=== PATIENT | male | born 1985 | race Caucasian/White ===

== ENCOUNTER 2024-04-25 13:18 | Emergency (ER) | payer OTHER, SELFPAY ==
[2024-04-25 13:22] VITALS: BP 154/106; PULSE 75; TEMP 36.5; O2SAT 99; BMI 33.1
--- NOTE | 2024-04-25 13:44 | ED_ITS ---
<Statement entered by Yinka Lugo MD - 04/25/24 18:45> Chart was sent to my inbox for administrative and group management purposes. I was the attending physicians working during the patients hospital course. The patient was seen and managed independently by the MLP. I did not personally see or evaluate this patient, nor was I involved in the patient medical decision making process or plans of care. Pt was dispositioned by the MLP with complete independence and I was not involved in planning, and am reviewing this chart at a later date. I was available for consultation should the MLP request during this patients ED stay. Midlevel this documentation has been reviewed and approved. HPI HPI - Back Pain/Injury General Chief Complaint: Back Pain/Injury Stated Complaint: BACK PAIN Time Seen by Provider: 04/25/24 13:26 Source: patient Mode of arrival: walk-in History of Present Illness HPI Narrative: Patient is a 38-year-old male who presents to the emergency department for pain across the low back which has been present for 2 weeks. He was seen last week at [facility] last week and was placed on Robaxin and prednisone. He states he has been taking these medications for the last 5 to 6 days without improvement. He states he is worried that it may be his kidneys that is causing pain across his low back. He has no pain radiation to the lower extremities. No mechanism of injury or trauma. No peripheral paresthesias or urinary symptoms. He states when he went to [facility] he feels as though the provider rushed him through . He does not have an appointment with her primary care provider until next month. Related Data Home Medications ?Medication ?Instructions ?Recorded ?Confirmed clotrimazole-betamethasone 1 1 applic topical BID 04/25/24 04/25/24 %-0.05 % topical cream losartan 25 mg tablet 25 mg PO DAILY 04/25/24 04/25/24 methocarbamol 750 mg tablet 750 mg PO Q6H PRN pain 04/25/24 04/25/24 prednisone 20 mg tablet 60 mg PO DAILY 04/25/24 04/25/24 Previous Rx's ?Medication ?Instructions ?Recorded ketorolac 10 mg tablet 10 mg PO TID PRN pain #10 tabs 04/25/24 orphenadrine citrate 100 mg 100 mg PO BID PRN muscle pain #14 04/25/24 tablet,extended release tabs Allergies Allergy/AdvReac Type Severity Reaction Status Date / Time Penicillins Allergy Severe Unknown Verified 04/25/24 13:26 Opioid HPI Opioid Management Most Recent Opioid Data: No Data to Display Review of Systems ROS Constitutional Denies: fever or chills Ears, nose, mouth, and throat Denies: throat pain or nasal congestion Cardiovascular Denies: chest pain Respiratory Denies: shortness of breath Gastrointestinal Denies: abdominal pain, nausea or vomiting Musculoskeletal Reports: back pain; Denies: neck pain, extremity pain or extremity swelling Neurological Denies: numbness in extremities or weakness in extremities Hematologic/Lymphatic Denies: easy bruising or easy bleeding [facility] Medical History (Updated 04/25/24 @ 14:55 by Ayde Carias) Low back pain ?M54.50 - Low back pain, unspecified (ICD-10) HTN (hypertension) ?I10 - Essential (primary) hypertension (ICD-10) Social History Little interest or pleasure in doing things: not at all Feeling down, depressed, or hopeless: not at all Exam Narrative Exam Narrative: Gen.: Awake, alert, in no distress Head: Normocephalic, atraumatic ENT: Moist mucous membranes Respiratory: No respiratory distress Back: Diffuse tenderness of the lumbar spine and paraspinal muscles with no bony point tenderness. No obvious deformity or step-off. Extremities: Moves extremities equally, no injuries noted; normal dorsiflexion and plantarflexion of the lower extremities with no decrease in sensation to the medial thighs. Normal hip flexion bilaterally Psych: Normal mood and affect Neuro: No focal neuro deficit Skin: Warm, dry, intact Constitutional Vital Signs, click to edit/add: Last Vital Signs Temp 97.7 F 04/25/24 13:22 Pulse 75 04/25/24 13:22 Resp 18 04/25/24 13:22 BP 154/106 H 04/25/24 13:22 Pulse Ox 99 04/25/24 13:22 O2 Del Method Room Air 04/25/24 13:22 Course Vital Signs Vital signs: Vital Signs Temperature 97.7 F 04/25/24 13:22 Pulse Rate 75 04/25/24 13:22 Respiratory Rate 18 04/25/24 13:22 Blood Pressure 154/106 H 04/25/24 13:22 Pulse Oximetry 99 04/25/24 13:22 Oxygen Delivery Method Room Air 04/25/24 13:22 Temperature 97.7 F 04/25/24 13:22 Pulse Rate 75 04/25/24 13:22 Respiratory Rate 18 04/25/24 13:22 Blood Pressure 154/106 H 04/25/24 13:22 Pulse Oximetry 99 04/25/24 13:22 Oxygen Delivery Method Room Air 04/25/24 13:22 MDM - Back Pain/Injury MDM Narrative Medical decision making narrative: Patient drove himself to the emergency department, he took ibuprofen prior to arrival. He is very concerned that he is having an issue with his kidneys so labs were performed which were unremarkable and urine specimen shows trace leukocytes and bacteria so urine culture will be sent. CT of the abdomen and pelvis was performed showing no evidence of acute process with mild degenerative changes of the lumbar spine and hips. Patient was issued new prescriptions, e ncouraged to follow-up with his PCP and return to the emergency department if symptoms change or worsen. SUPERVISED APC VISIT, PHYSICIAN ATTESTATION: Based on the medical record the care appears appropriate. ? Medical Records Attestation: I reviewed the patient's medical records. Lab Data Attestation: I reviewed the patient's lab results. Labs: Lab Results 04/25/24 04/25/24 Range/Units 13:50 14:02 WBC 7.2 (4.0-11.0) 10^3/uL RBC 4.39 L (4.70-6.10) 10^6/uL Hgb 14.3 (14.0-18.0) g/dL Hct 43.1 (42.0-54.0) % MCV 98.2 H (80.0-94.0) fL MCH 32.6 (25.9-34.0) pg MCHC 33.2 (29.9-35.2) g/dL RDW 12.0 (11.0-15.0) % Plt Count 253 (150-450) 10^3/uL MPV 9.9 (9.5-13.5) fL Neut % (Auto) 83.0 H (43.0-75.0) % Lymph % (Auto) 11.2 L (20.5-60.0) % [place] % (Auto) 3.3 (1.7-12.0) % Eos % (Auto) 1.8 (0.9-7.0) % Baso % (Auto) 0.4 (0.2-2.0) % Neut # (Auto) 6.0 (1.4-6.5) 10^3/uL Lymph # (Auto) 0.8 L (1.2-3.8) 10^3/uL [place] # (Auto) 0.2 L (0.3-0.8) 10^3/uL Eos # (Auto) 0.1 (0.0-0.7) 10^3/uL Baso # (Auto) 0.0 (0.0-0.1) 10^3/uL Abs Immat Gran (auto) 0.02 (0.00-0.03) 10^3/uL Imm/Tot Granulo (auto) 0.3 (0.0-0.5) % Sodium 140 (136-145) mmol/L Potassium 4.2 (3.5-5.1) mmol/L Chloride 105 (98-107) mmol/L Carbon Dioxide 28.4 (21.0-32.0) mmol/L Anion Gap 10.8 BUN 15.0 (7.0-18.0) mg/dL Creatinine 1.07 (0.70-1.30) mg/dL Est GFR ( Amer) >60 (>=60 mL/min/1.73m^2) Est GFR (Non-Af Amer) >60 (>=60 mL/min/1.73m^2) BUN/Creatinine Ratio 14.0 Glucose 115 H (74-106) mg/dL Calcium 9.1 (8.5-10.1) mg/dL Urine Color Lt. yellow (YELLOW) Urine Clarity Clear (CLEAR) Urine pH 6.0 (5.0-9.0) Ur Specific [place] 1.020 (1.005-1.025) Urine Protein Negative (NEG/TRACE) mg/dL Urine Glucose (UA) Negative (NEGATIVE) mg/dL Urine Ketones Negative (NEGATIVE) mg/dL Urine Occult Blood Trace-i (NEGATIVE) Urine Nitrite Negative (NEGATIVE) Urine Bilirubin Negative (NEGATIVE) Urine Urobilinogen 0.2 (0.2-1.0) EU/dL Ur Leukocyte Esterase Trace A (NEGATIVE) Urine RBC 0-2 (0-2) #/HPF Urine WBC 2-5 A (NONE SEEN) #/HPF Ur Squamous Epith Cells Rare (NONE/RARE) #/LPF Urine Crystals None seen (None Seen) #/HPF Urine Bacteria Trace A (NONE SEEN) #/HPF Urine Casts None seen (NONE SEEN) #/LPF Urine Mucus None seen (NONE SEEN) Ur Culture Indicated? No Imaging Data CT scan - abdomen: Attestation: I have reviewed the pertinent imaging results. Radiologist's impression: ITS Impressions Abdomen/Pelvis CT 04/25/24 14:17 IMPRESSION: 1. No acute or specific findings to account for patient's symptoms. 2. Multilevel mild degenerative disc disease of lumbar spine. 3. Mild degenerative changes of hip joints. Electronically authenticated by: KEV WADE Date: 04/25/2024 14:36 Discharge Plan Discharge Chief Complaint: Back Pain/Injury Clinical Impression: Low back pain Patient Disposition: Home, Self-Care Time of Disposition Decision: 14:41 Condition: Good Prescriptions / Home Meds: New ketorolac 10 mg tablet 10 mg PO TID PRN (Reason: pain) Qty: 10 0RF orphenadrine citrate 100 mg tablet extended release 100 mg PO BID PRN (Reason: muscle pain) Qty: 14 0RF No Action clotrimazole-betamethasone 1-0.05 % cream 1 applic TOPICAL BID losartan 25 mg tablet 25 mg PO DAILY methocarbamol 750 mg tablet 750 mg PO Q6H PRN (Reason: pain) prednisone 20 mg tablet 60 mg PO DAILY Patient Comments: 7 days Print Language: Croatian Instructions: Acute Low Back Pain (ED) Referrals: Physician,Non-Staff, MD [Primary Care Provider] - 1 week
--- NOTE | 2024-04-25 13:45 | PC.NURSE ---
low back pain
[2024-04-25 14:02] LABS: Bilirubin Urine NEGATIVE (NEGATIVE); Blood Urine TRACE-I (NEGATIVE); Clarity Urine CLEAR (CLEAR); Color Urine LT. YELLOW (YELLOW); Glucose Urine UA NEGATIVE (NEGATIVE); Ketones Urine NEGATIVE (NEGATIVE); Leukocyte Esterase Urine TRACE (NEGATIVE); Nitrite Urine NEGATIVE (NEGATIVE); Protein Urine NEGATIVE (NEG/TRACE); Urobilinogen Urine 0.2 EU/dL (0.2-1.0)
[2024-04-25 14:04] LABS: Urine Microscopic Indicated YES
[2024-04-25 14:09] LABS: Basophils Percent Auto 0.4 % (0.2-2.0); Eosinophils Absolute Auto 0.1 10^3/uL (0.0-0.7); Eosinophils Percent Auto 1.8 % (0.9-7.0); Hematocrit 43.1 % (42.0-54.0); Hemoglobin 14.3 g/dL (14.0-18.0); Immature Granulocytes Abs Auto 0.02 10^3/uL (0.00-0.03); Immature Granulocytes Pct Auto 0.3 % (0.0-0.5); Lymphocytes Absolute Auto 0.8 10^3/uL (1.2-3.8); Lymphocytes Percent Auto 11.2 % (20.5-60.0); Mean Corpuscular HGB Conc 33.2 g/dL (29.9-35.2); Mean Corpuscular Hemoglobin 32.6 pg (25.9-34.0); Mean Corpuscular Volume 98.2 fL (80.0-94.0); Mean Platelet Volume 9.9 fL (9.5-13.5); Monocytes Absolute Auto 0.2 10^3/uL (0.3-0.8); Monocytes Percent Auto 3.3 % (1.7-12.0); Platelet Count 253 10^3/uL (150-450); Red Blood Count 4.39 10^6/uL (4.70-6.10); White Blood Count 7.2 10^3/uL (4.0-11.0)
[2024-04-25 14:15] LABS: RBC Urine 0-2 #/HPF (0-2)
[2024-04-25 14:16] LABS: Bacteria Urine TRACE #/HPF (NONE SEEN); Cast Seen? NONE SEEN #/LPF (NONE SEEN); Crystals Seen? None Seen #/HPF (None Seen); Mucus Urine NONE SEEN (NONE SEEN); Squamous Epithelial Cell Urine RARE #/LPF (NONE/RARE); Urine Culture Indicated NO
--- NOTE | 2024-04-25 14:17 | CT_ITS ---
[address] [address] Patient Name: MAICO PHELAN MRN: [id number] date: 1985 Sex: M Assigned Patient Location: ER Current Patient Location: ER Accession/Order Number: [id number] Exam Date: 04/25/2024 14:14 Report Date: 04/25/2024 14:36 At the request of: JOHN LITTLEJOHN Procedure: CT abdomen pelvis wo con EXAMINATION: CT abdomen pelvis wo con HISTORY: Low back pain COMPARISON: No relevant comparison available. TECHNIQUE: Axial, Coronal, and Sagittal images were obtained without and/or with IV contrast as indicated by examination type. Dose reduction techniques were achieved by using automated exposure control and/or adjustment of mA and/or kV according to patient size and/or use of iterative reconstruction technique. FINDINGS: LUNG BASES: No visible pulmonary or pleural disease. LIVER: No enlargement, atrophy, suspicious density, or significant focal lesion. BILIARY: No dilatation or calcification. PANCREAS: No lesion, fluid collection, or abnormal duct dilatation. SPLEEN: No enlargement or focal lesion. ADRENALS: No mass or enlargement. KIDNEYS: Benign-appearing left renal cyst. No mass, obstruction, or calcification. BOWEL/MESENTERY: No visible mass, obstruction, or bowel wall thickening. AORTA/VASCULAR: No aneurysm or dissection. RETROPERITONEUM: Mild lymphadenopathy, nonspecific. LYMPH NODES: No pelvic lymphadenopathy. URINARY BLADDER: No visible focal wall thickening, lesion, or calculus. PELVIC ORGANS: No visible mass. Pelvic organs appropriate for patient age. ABDOMINAL WALL: No mass or hernia. BONES: Multilevel mild disc space narrowing and mild disc bulging of the lumbar spine. Joint space narrowing and periarticular osteophytes involving the hip joints bilaterally. No bony lesion or fracture. OTHER: Negative. CT/CT abdomen pelvis wo con IMPRESSION: 1. No acute or specific findings to account for patient's symptoms. 2. Multilevel mild degenerative disc disease of lumbar spine. 3. Mild degenerative changes of hip joints. Electronically authenticated by: KEV WADE Date: 04/25/2024 14:36
[2024-04-25 14:19] LABS: Anion Gap 10.8; Calcium 9.1 mg/dL (8.5-10.1); Carbon Dioxide 28.4 mmol/L (21.0-32.0); Chloride 105 mmol/L (98-107); Estimated GFR (African America >60 (>=60 mL/min/1.73m^2); Estimated GFR (Non-African Ame >60 (>=60 mL/min/1.73m^2); Glucose 115 mg/dL (74-106); Potassium 4.2 mmol/L (3.5-5.1); Sodium 140 mmol/L (136-145)
[2024-04-25 14:52] LABS: BOX Test Reference Lab FRMC; BOX Test Sent Out URINE CX
== END 2024-04-25 14:57 | disposition home or self-care (01) ==
PROVIDERS: Physician Assistant; Emergency Provider Emergency Medicine
DX: M54.50 Low back pain, unspecified (principal); M51.369 Other intervertebral disc degeneration, lumbar region without mention of lumbar back pain or lower extremity pain
CPT/HCPCS: 36415; 74176; 80048; 81001; 85025; 87086; 99285